=== PATIENT | female | born 1960 | race Caucasian/White ===

== ENCOUNTER 2016-11-01 14:19 | Emergency (ER) | payer BC ==
[2016-11-01] MEDS ORDERED: ZOFRAN INJ 4 MG VIAL ONE (14:32)
[2016-11-01 14:37] VITALS: BP 141/100; BMI 33.3
[2016-11-01] MEDS ORDERED: HYDROGEN PEROXIDE 3% ONE (14:37)
[2016-11-01] MEDS ORDERED: MORPHINE SULFATE INJ 4 MG IVP ONE (14:48)
[2016-11-01] MEDS ORDERED: ZOFRAN INJ 4 MG VIAL IVP ONE (14:48)
[2016-11-01] MEDS ORDERED: XYLOCAINE 1% and EPINEPHRINE 1:100,000 ONE (14:51)
[2016-11-01] MEDS ORDERED: MORPHINE SULFATE INJ 4 MG ONE (14:51)
--- NOTE | 2016-11-01 14:55 | CT ---
HISTORY: Fell and hit head. Study: CT brain without contrast. Dose reduction techniques including Automated Exposure Control (A EC) and adjustment of mA and kV were utilized. Comparison: None. Technique: Multiple axial images of the brain were obtained from the skull base to the vertex without administr ation of IV contrast. Findings: No acute intraparenchymal hemorrhage or mass can be identified. No extra-axial fluid collections ar e seen. No alteration in the attenuation of the brain parenchyma can be identified to suggest acute or subacute ischemic change. The ventricular system is symmetric and nondilated. There is an extr acranial soft tissue laceration along the lateral aspect of the supraorbital region on the left with out underlying bony fracture. IMPRESSION: No acute intracranial process can be identified. Reported By:
[2016-11-01] MEDS ORDERED: NEOSPORIN OINT ONE (15:25)
--- NOTE | 2016-11-01 15:25 | DR.GENAD ---
HPI - PCP Primary Care Physician: radha - Complaint/Symptoms Chief Complaint Doctors Comments: Admits to a headache for 3 days duration. Pain 8/10. sharp, duration 1 hour, timing just prior to being seen. Laceration of left eye brow. Chief Complaint:: patient stated she fel and hit her head on her head board causeing a 2 cm laceration to her left eye rony - Source History Provided: Patient - Mode of Arrival Mode of Arrival: Ambulatory - Timing Onset of Chief Complaint: 11/01/16 PMH - PMH Past Medical History: No Past Surgical History: Yes Surgical History: Cholecystectomy, Hysterectomy - Family History History of Family Medical Conditions: No - Social History Does patient currently use any type of tobacco product: No Have you used tobacco products in the last 12 months: No Type of Tobacco Use: None Does any household member use tobacco: No Alcohol Use: None Do you use any recreational Drugs:: No Lives With: Family Lives Where: Home - infectious screening In the last 2 months have you had wt loss of >10#?: NO Have you had fever, night sweats or hemotysis?: No Have you traveled outside the country in the last 6 months?: No Isolation: Standard ROS - Review of Systems Constitutional: Diaphoresis Eyes: No Symptoms Reported ENTM: No Symptoms Reported Respiratoy: No Symptoms Reported Cardiovascular: No Symptoms Reported Gastrointestinal/Abdominal: No Symptoms Reported Genitourinary: No Symptoms Reported Neurological: No Symptoms Reported Musculoskeletal: No Symptoms Reported Integumentary: Wound (a 2 cm superfical of left eye brow) Hematologic/Lymphatic: No Symptoms Reported Endocrine: No Symptoms Reported Psychiatric: No Symptoms Reported All Other Systems: Reviewed and Negative PE - Vital Signs Vitals: Temperature 98.5 F Pulse Rate 122 Respiratory Rate 18 Blood Pressure 141/100 O2 Sat by Pulse Oximetry 99 - General Limitations: No Limitations General Appearance: Alert, In No Apparent Distress - Head Head Exam: Normal Inspection, Atraumatic - Eyes Eye exam: Normal Appearance, PERRL, EOMI - ENT ENT Exam: Normal Exam External Ear Exam: Normal External Inspection TM/Canal Exam: Bilateral Normal Nose Exam: Normal Nose Exam Mouth Exam: Normal Inspection Throat Exam: Normal Inspection - Neck Neck Exam: Normal Inspection - Chest Chest Inspection: Normal Inspection - Respiratory Respiratory Exam: Normal Lung Sounds Bilat Respiratory Exam: Bilateral Clear to Auscultation - Cardiovascular Cardiovascular Exam: Regular Rate, Normal Rhythm - Abdominal Exam Abdominal Exam: Normal Inspection Abdominal Tenderness: negative: RUQ, RLQ, LUQ, LLQ, Epigastrium, Suprapubic, Diffuse, Mild, Moderate, Severe, Other - Extremities Extremities Exam: Normal Inspection - Back Back Exam: Normal Inspection - Neurologic Neurological Exam: Alert, Oriented X3, CN II-XII Intact - Psychiatric Psychiatric Exam: Normal Affect - Skin Skin Exam: Warm, Dry Course - Reevaluation 1st: Improved ROR - XRAY XRAY Interpreted by: Radiologist (ct Brain:No acute intraparenchymal hemorrhage or mass can be identified. No extra-axial fluid collections are seen. No alteration in the attenuation of the brain parenchyma can be identified to suggest acute or subactue ischemic change. The ventricular system is symmetric and nondilated. There is an extracranial soft tissue laceration along the lateral aspect of the supruorbital region on the left without underlying boyn fracture. IMpression: No acute intracranial [id number] can be identified.) Procedures - Procedure Comments Procedures: Laceration reparation of left eyebrow with 3 #4 interrupted ethilon sutures. - Diagnosis Discharge Problem: Laceration of forehead Qualifiers: Encounter type: initial encounter Qualified Code(s): S01.81XA - Laceration without foreign body of other part of head, initial encounter Headache Qualifiers: Headache type: unspecified Headache chronicity pattern: acute headache Intractability: not intractable Qualified Code(s): R51 - Headache - Discharge Plan Condition: Stable - Follow ups/Referrals Follow ups/Referrals: Ivan Wayne [Primary Care Provider] - 3 days - Instructions
[2016-11-01] MEDS ORDERED: ANTIVERT TAB 25 MG PO ONE ×2 (15:39→16:26)
[2016-11-01] MEDS ORDERED: ANTIVERT TAB 25 MG ONE ×2 (15:46→16:26)
[2016-11-01 15:51] LABS: BASOPHILS % (AUTO) 0.4 % (0.2-1.0); HEMATOCRIT 42.5 % (36.0-47.0); HEMOGLOBIN 14.6 g/dL (12.0-16.0); MEAN CORPUSCULAR HEMOGLOBIN 30.5 pg (27.0-34.0); MEAN CORPUSCULAR HGB CONC 34.3 g/dL (33.0-35.0); MEAN CORPUSCULAR VOLUME 88.8 fL (80.0-100.0); MEAN PLATELET VOLUME 7.6 fL (7.4-11.0); MONOCYTES # (AUTO) 0.6 x10^3/uL (0.3-0.8); MONOCYTES % (AUTO) 5.1 % (0.0-13.0); NEUTROPHILS # (AUTO) 9.2 x10^3/uL (2.2-4.8); NEUTROPHILS % (AUTO) 85.5 % (42.0-75.0); PLATELET COUNT 286 X10^3/uL (150.0-450.0); RED BLOOD COUNT 4.78 X10^6/uL (3.5-5.4); RED CELL DISTRIBUTION WIDTH 13.5 % (11.6-16.5); WHITE BLOOD COUNT 10.7 X10^3/uL (3.6-10.0)
[2016-11-01 15:55] LABS: BLOOD UREA NITROGEN 15 mg/dL (7-18); CALCIUM 8.2 mg/dL (8.5-10.1); CARBON DIOXIDE 30.4 mmol/L (21-32); CHLORIDE 105 mmol/L (98-107); COR NA(FOR HYPERGLY) 142 mmol/L (136-145); CREATININE 0.66 mg/dL (0.55-1.02); GLUCOSE 120 mg/dL (65-99); SODIUM 142 mmol/L (136-145); eGFR BLACK RACES > 60 (>60); eGFR NON BLACK RACES > 60 (>60)
[2016-11-01 16:00] LABS: ALANINE AMINOTRANSFERASE 22 Units/L (12-78); ALBUMIN 3.8 g/dL (3.4-5.0); ALKALINE PHOSPHATASE 59 Units/L (46-116); ASPARTATE AMINO TRANSFERASE 17 Units/L (15-37); TOTAL PROTEIN 7.2 g/dL (6.4-8.2)
[2016-11-01] MEDS ORDERED: POTASSIUM CHLORIDE LIQ 20 MEQ UDC PO ONE (16:23)
[2016-11-01] MEDS ORDERED: POTASSIUM CHLORIDE LIQ 20 MEQ UDC ONE (16:25)
== END 2016-11-01 16:38 | disposition home or self-care (01) ==
LOC: ER 14:21
PROC: 08QP0ZZ Repair Left Upper Eyelid, Open Approach (ICD-10-PCS; principal; 2016-11-01)
DX: S01.81XA Laceration without foreign body of other part of head, initial encounter (principal); R51 Headache; W01.198A Fall on same level from slipping, tripping and stumbling with subsequent striking against other object, initial encounter; Y92.9 Unspecified place or not applicable
CPT/HCPCS: 12011; 36415; 70450; 80053; 85025; 93005; 93010; 96372; 99283; J2001; J2270; J2405

== ENCOUNTER 2016-11-03 11:00 | Inpatient (IN) | payer BC ==
[2016-11-03] MEDS ORDERED: ZOFRAN INJ 4 MG VIAL IVP PRN (12:03)
[2016-11-03 13:05] LABS: BASOPHILS % (AUTO) 0.4 % (0.2-1.0); EOSINOPHILS % (AUTO) 0.4 % (0.9-2.9); HEMATOCRIT 41.8 % (36.0-47.0); HEMOGLOBIN 14.6 g/dL (12.0-16.0); LYMPHOCYTES # (AUTO) 1.4 X10^3/uL (1.3-2.9); LYMPHOCYTES % (AUTO) 15.1 % (21.0-51.0); MEAN CORPUSCULAR HEMOGLOBIN 30.8 pg (27.0-34.0); MEAN CORPUSCULAR VOLUME 87.9 fL (80.0-100.0); MEAN PLATELET VOLUME 7.7 fL (7.4-11.0); MONOCYTES # (AUTO) 0.7 x10^3/uL (0.3-0.8); MONOCYTES % (AUTO) 7.2 % (0.0-13.0); NEUTROPHILS # (AUTO) 7.3 x10^3/uL (2.2-4.8); NEUTROPHILS % (AUTO) 76.9 % (42.0-75.0); PLATELET COUNT 283 X10^3/uL (150.0-450.0); RED BLOOD COUNT 4.76 X10^6/uL (3.5-5.4); RED CELL DISTRIBUTION WIDTH 13.4 % (11.6-16.5); WHITE BLOOD COUNT 9.5 X10^3/uL (3.6-10.0)
[2016-11-03 13:27] LABS: ALANINE AMINOTRANSFERASE 24 Units/L (12-78); ALBUMIN 3.7 g/dL (3.4-5.0); ALKALINE PHOSPHATASE 52 Units/L (46-116); ASPARTATE AMINO TRANSFERASE 21 Units/L (15-37); BLOOD UREA NITROGEN 25 mg/dL (7-18); CALCIUM 8.9 mg/dL (8.5-10.1); CARBON DIOXIDE 36.7 mmol/L (21-32); CHLORIDE 103 mmol/L (98-107); CKMB % 2.2 % (<4); CREATINE KINASE 46 Units/L (26-192); CREATINE KINASE MB < 1.0 ng/mL (0-4.0); CREATININE 0.91 mg/dL (0.55-1.02); GLUCOSE 95 mg/dL (65-99); SODIUM 143 mmol/L (136-145); TOTAL PROTEIN 7.3 g/dL (6.4-8.2); TROPONIN I < 0.02 ng/mL (0-1.5); eGFR BLACK RACES > 60 (>60); eGFR NON BLACK RACES > 60 (>60)
[2016-11-03] MEDS ORDERED: ZOFRAN INJ 4 MG VIAL 16 MG, ATIVAN INJ 2 MG VIAL 1 MG, DECADRON INJ 10 MG in NS 50 ML I... IV PRN (13:42)
[2016-11-03 13:44] LABS: ERYTHROCYTE SEDIMENTATION RATE 9 MM/HOUR (0-20)
--- NOTE | 2016-11-03 13:49 | DR.H&P ---
H&P - History & Physical for Day of: H&P Date: 11/03/16 - Chief Complaint Chief Complaint: INTRACTABLE RAMIREZ, DIZZINESS, SYNCOPE - Allergies Allergies/Adverse Reactions: Allergies Allergy/AdvReac Type Severity Reaction Status Date / Time No Known Drug Allergies Allergy Verified 11/03/16 11:59 - History of Present Illness History of Present Illness: 56 WF DIRECT ADMIT FOR INTRACTABLE RAMIREZ, DIZZINESS AND SYNCOPAL EPISODE, PT HAS BEEN UNDER THE CARE OF STEVE RICHARDSON WITH COUNT INCLUDES THE [facility] WITH RAMIREZ AND DIZZINESS. PT HAS EXPERIENCED AND SYNCOPAL EPISODE WITH HEAD INJURY DURING THIS TIME. PT HAS CT HEAD PRIOR TO ADMISSION STABLE FOR ACUTE FINDINGS. THIS AM PT HAS N/V AND CONTINUED RAMIREZ. PLAN TO ADMIT FOR STAT MRI , CAROTID, EKG CARDIAC ENZYMES, WITH TREAT N/V SYMPTOMS. CRP, AND SED RATE, START IV SOLU MEDROL 40, ZOFRAN COCKTAIL, SUPPLEMENTAL O2, BP AND CARDIAC MONITORING - Past Medical History Past Medical History: Arthritis, GERD - Past Surgical History Surgical History: Cholecystectomy, Hysterectomy - Social History Does patient currently use any type of tobacco product: No Have you used tobacco products in the last 12 months: No Type of Tobacco Use: None Does any household member use tobacco: No Alcohol Use: None Drug Use: None - Review of Systems Constitutional: Weakness Eyes: Vision Change (ON WEDNESDAY 11/01, NONE TODAY) ENT: No Symptoms Reported Respiratory: No Symptoms Reported Cardiovascular: Light Headedness Gastrointestinal: Nausea, Vomiting Genitourinary: No Symptoms Reported Musculoskeletal: No Symptoms Reported Skin: No Symptoms Reported Neurological: Weakness, Other (HEADACHE) - Physical Exam Vital Signs: Temperature 98.9 F Pulse Rate [Left Brachial] 66 Respiratory Rate 20 Blood Pressure [Left Arm] 135/61 Blood Pressure 141/100 O2 Sat by Pulse Oximetry 94 Oriented: Normal Eyes: Normal Ear: Normal Nose: Normal Throat: Normal Respiratory: Clear Throughout Cardiovascular: Normal : Normal Auscultation: Bowel Sounds: Bruit Palpation: Normal Tenderness: Normal Skin: Normal Musculoskeletal: Normal Psychiatric: Anxiety - Assessment/Plan (1) Intractable headache Qualifiers: Headache type: H Headache chronicity pattern: H Status: Acute Plan: ADMIT, MRI STAT, PREVIOUSLY HAD CT HEAD SALES REPRESENTATIVE UNIFORMS. SERIAL CE'S AND EKG'S. PAIN AND NAUSEA CONTORL, CAROTIDS, BP AND CARDIAC MONITORNIG. CRP, SED RATE, WILL GIVE LOW DOSE SOLU MEDROL (2) Dizziness Status: Acute (3) Syncope Qualifiers: Syncope type: S Encounter type: E Status: Acute (4) Headache Qualifiers: Headache type: unspecified Headache chronicity pattern: acute headache Intractability: not intractable Qualified Code(s): R51 - Headache Status: Acute
--- NOTE | 2016-11-03 13:53 | MRI ---
HISTORY: Severe headache Study: MRI brain with and without contrast Comparison:none available Technique: Multiplanar multi-sequence MRI of the brain was obtained. Sagittal T1, axial T1, axial T 2, axial flair images, coronal T1, sagittal T1 post contrast, coronal T1 postcontrast, axial T1 post contrast images were obtained. Findings: There is increased the tibial by and ADC map signal within the medial inferior left cerebellar hemis phere with corresponding increased FLAIR and T2 signal abnormality. The no abnormal post-contrast en hancement within the left cerebellar hemisphere. The midline structures appear intact. The posterior fossa is unremarkable. The sulcal markings of the brain are normal in their appearance. Normal booth-white differentiation is maintained. No evid ence for intraparenchymal hemorrhage or mass can be identified. No extra-axial fluid collections or subarachnoid hematoma can be seen. Evaluation of the diffusion weighted images demonstrates no neena dence for acute ischemic change. The cerebral pontine angle is normal in its contour without eviden ce for mass. The ventricular system appears symmetric and nondilated. Postcontrast enhancement demonstrates no evidence for an enhancing lesion such as mass or vascular m alformation. IMPRESSION: 1. 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 No acute or subacute infarct is id entified. No mass effect or acute intracranial hemorrhage. Post-contrast imaging demonstrates no abn ormal intra-axial or extra-axial enhancement. Reported By:
--- NOTE | 2016-11-03 14:31 | RAD ---
HISTORY: Headache, dizziness Study: Chest two-view Comparison: None Findings: The trachea is midline. The cardiac silhouette is upper limits normal in size. No congestive heart failure is noted.. The lungs are clear without focal infiltrate or effusion. The bony thorax is un remarkable. IMPRESSION: 1. No acute cardiopulmonary disease. Reported By:
--- NOTE | 2016-11-03 14:36 | VAS ---
HISTORY: Headache, nausea/vomiting, shortness of breath. Study: Carotid ultrasound. Comparison: CT head dated November 01, 2016. Technique: Multiple booth scale and color flow Doppler images of the right and left carotid arterial system were obtained. The vertebral arterial system was evaluated as well. Findings: Normal color flow Doppler is seen throughout the right and left carotid arterial system. No signifi cant plaque burden. No hemodynamically significant stenosis is seen based on velocity criteria. The left vertebral artery demonstrates antegrade flow. The right vertebral artery was not well seen. IMPRESSION: 1. No hemodynamically significant stenosis. 2. The right vertebral artery was not well seen. Reported By:
[2016-11-03] MEDS: NS 1000 ML 1,000 ML IV SCH (14:45)
[2016-11-03] MEDS: SOLU-Medrol 40 MG VIAL IVP SCH ×2 (14:45→22:47)
[2016-11-03 15:22] VITALS: BMI 32.1
[2016-11-03] MEDS ORDERED: ULTRAM PO PRN (16:13)
[2016-11-03] MEDS ORDERED: ULTRAM ONE (16:34)
[2016-11-03] MEDS ORDERED: MORPHINE SULFATE INJ 2 MG ONE (16:39)
[2016-11-03] MEDS ORDERED: MORPHINE SULFATE INJ 2 MG IVP PRN (16:41)
[2016-11-03] MEDS ORDERED: TORADOL 15 MG VIAL IVP PRN (17:48)
[2016-11-03] MEDS: ECOTRIN TAB 325 MG PO SCH (18:05)
[2016-11-03] MEDS ORDERED: TORADOL 30 MG VIAL ONE (18:08)
[2016-11-03] MEDS ORDERED: NS 50 ML IV + SPIKE MINIBAG* 50 ML IV ONE (19:18)
[2016-11-03] MEDS ORDERED: ROCEPHIN VIAL 1 GM ONE (19:18)
[2016-11-03] MEDS: PROTONIX INJ 40 MG VIAL IVP SCH (19:41)
[2016-11-03] MEDS: ROCEPHIN VIAL 1 GM 1 GM in NS 50 ML IV + SPIKE MINIBAG* 50 ML IV SCH (19:46)
[2016-11-03] MEDS ORDERED: K-LYTE EFFERVESCENT PO PRN (19:48)
[2016-11-03] MEDS ORDERED: POTASSIUM CHLORIDE LIQ 20 MEQ UDC PO PRN (19:48)
[2016-11-03] MEDS ORDERED: K-DUR TAB 20 MEQ PO PRN (19:48)
[2016-11-03] MEDS ORDERED: K-RIDER 10 MEQ/NS 100 ML 10 MEQ/100 ML BAG IV PRN (19:55)
[2016-11-03] MEDS ORDERED: NS 1000 ML 1,000 ML IV SCH (20:00)
[2016-11-03 20:03] LABS: CKMB % 2.1 % (<4); CREATINE KINASE 47 Units/L (26-192); CREATINE KINASE MB < 1.0 ng/mL (0-4.0); TROPONIN I < 0.02 ng/mL (0-1.5)
[2016-11-03] MEDS: CRESTOR TAB 10 MG PO SCH (21:18)
[2016-11-03] MEDS ORDERED: NS 50 ML IV 50 ML IV ONE (23:00)
[2016-11-03] MEDS ORDERED: ZOFRAN INJ 4 MG VIAL ONE (23:00)
[2016-11-03] MEDS ORDERED: DECADRON INJ PRESERVATIVE-FREE ONE (23:00)
[2016-11-03] MEDS ORDERED: ATIVAN INJ 2 MG VIAL ONE (23:01)
[2016-11-04 02:48] LABS: CREATINE KINASE 50 Units/L (26-192); CREATINE KINASE MB < 1.0 ng/mL (0-4.0); TROPONIN I < 0.02 ng/mL (0-1.5)
[2016-11-04] MEDS: SOLU-Medrol 40 MG VIAL IVP SCH ×3 (05:25→22:59)
[2016-11-04] MEDS: NS 1000 ML 1,000 ML IV SCH ×2 (05:25→20:24)
[2016-11-04 05:26] LABS: BASOPHILS % (AUTO) 0.2 % (0.2-1.0); HEMATOCRIT 42.9 % (36.0-47.0); LYMPHOCYTES % (AUTO) 10.1 % (21.0-51.0); MEAN CORPUSCULAR HEMOGLOBIN 30.9 pg (27.0-34.0); MEAN CORPUSCULAR HGB CONC 34.9 g/dL (33.0-35.0); MEAN CORPUSCULAR VOLUME 88.6 fL (80.0-100.0); MONOCYTES # (AUTO) 0.1 x10^3/uL (0.3-0.8); MONOCYTES % (AUTO) 0.9 % (0.0-13.0); NEUTROPHILS # (AUTO) 8.4 x10^3/uL (2.2-4.8); NEUTROPHILS % (AUTO) 88.8 % (42.0-75.0); PLATELET COUNT 294 X10^3/uL (150.0-450.0); RED BLOOD COUNT 4.84 X10^6/uL (3.5-5.4); RED CELL DISTRIBUTION WIDTH 13.3 % (11.6-16.5); WHITE BLOOD COUNT 9.5 X10^3/uL (3.6-10.0)
[2016-11-04 05:42] LABS: ALANINE AMINOTRANSFERASE 22 Units/L (12-78); ALBUMIN 3.6 g/dL (3.4-5.0); ALKALINE PHOSPHATASE 50 Units/L (46-116); ASPARTATE AMINO TRANSFERASE 20 Units/L (15-37); BLOOD UREA NITROGEN 24 mg/dL (7-18); CALCIUM 8.4 mg/dL (8.5-10.1); CARBON DIOXIDE 28.2 mmol/L (21-32); CHLORIDE 106 mmol/L (98-107); CHOL/HDL RATIO 3.3 (0.0-5.0); CHOLESTEROL 214 mg/dL (0-200); COR NA(FOR HYPERGLY) 144 mmol/L (136-145); CREATININE 0.65 mg/dL (0.55-1.02); GLUCOSE 119 mg/dL (65-99); HDL CHOLESTEROL 65 mg/dL (40-60); SODIUM 144 mmol/L (136-145); TOTAL PROTEIN 7.1 g/dL (6.4-8.2); TRIGLYCERIDES 64 mg/dL (0-150); eGFR BLACK RACES > 60 (>60); eGFR NON BLACK RACES > 60 (>60)
[2016-11-04] MEDS: ZOFRAN INJ 4 MG VIAL IVP PRN (06:25)
[2016-11-04] MEDS ORDERED: PHENERGAN INJ 25 MG IV ONE (09:12)
[2016-11-04] MEDS: ROCEPHIN VIAL 1 GM 1 GM in NS 50 ML IV + SPIKE MINIBAG* 50 ML IV SCH (09:13)
[2016-11-04] MEDS: PROTONIX INJ 40 MG VIAL IVP SCH (09:14)
[2016-11-04] MEDS: ECOTRIN TAB 325 MG PO SCH (09:29)
[2016-11-04] MEDS: REQUIP PO SCH ×2 (12:44→20:27)
[2016-11-04] MEDS ORDERED: NORCO 7.5/325 MG TAB PO PRN (14:37)
[2016-11-04] MEDS: CLARITIN-D 12 HOUR TAB PO SCH (15:31)
--- NOTE | 2016-11-04 17:39 | PCM.PROG ---
Progress Note - Progress Note for Day of Date: 11/04/16 - Subjective Subjective: 56 wf admitted one day ago with intractable ramirez, n/v. pt states this am, her RAMIREZ is tolerable, improved nausea. pt MRI revealed old cva, added statin and ecotrin to treatment, plan, consult neuro if available. pt states she thinks ramirez, dizziness is from sinus infection, will continue rocephin iv and ofe, prn nausea pain control. EEG ordered this am - Past Medical Family Social History Past Med/Fam/Surg Hx: No changes since H&P Allergies: Allergies No Known Drug Allergies Allergy (Verified 11/03/16 11:59) - Review of Systems ROS: No change since H&P - Vital Signs and I&O's Vital Signs: Temperature 98 F Pulse Rate [Left Brachial] 70 Respiratory Rate 20 Blood Pressure [Left Arm] 110/63 Blood Pressure 141/100 O2 Sat by Pulse Oximetry 95 Intake and Output: Intake & Output 11/02/16 11/03/16 11/04/16 11/05/16 11:59 11:59 11:59 11:59 Intake Total 1250 240 Output Total 0 4 Balance 1250 236 - Physical Exam Oriented: Normal Eyes: Normal Ear: Normal Nose: Other (frontal sinus tenderness) Throat: Exudate Respiratory: Normal Cardiovascular: Normal : Normal Auscultation: Bowel Sounds: Bruit Tenderness: Normal Skin: Normal Musculoskeletal: Normal Psychiatric: Anxiety Speech Pattern: Clear, Appropriate - Laboratory and Diagnostics Result Diagrams: 11/04/16 03:40 11/04/16 03:40 Labs: Laboratory WBC 9.5 X10^3/uL (3.6-10.0) 11/04/16 03:40 RBC 4.84 X10^6/uL (3.5-5.4) 11/04/16 03:40 Hgb 15.0 g/dL (12.0-16.0) 11/04/16 03:40 Hct 42.9 % (36.0-47.0) 11/04/16 03:40 MCV 88.6 fL (80.0-100.0) 11/04/16 03:40 MCH 30.9 pg (27.0-34.0) 11/04/16 03:40 MCHC 34.9 g/dL (33.0-35.0) 11/04/16 03:40 RDW 13.3 % (11.6-16.5) 11/04/16 03:40 Plt Count 294 X10^3/uL (150.0-450.0) 11/04/16 03:40 MPV 8.0 fL (7.4-11.0) 11/04/16 03:40 Neut % 88.8 % (42.0-75.0) H 11/04/16 03:40 Lymph % 10.1 % (21.0-51.0) L 11/04/16 03:40 [place] % 0.9 % (0.0-13.0) 11/04/16 03:40 Eos % 0.0 % (0.9-2.9) L 11/04/16 03:40 Baso % 0.2 % (0.2-1.0) 11/04/16 03:40 Neut # 8.4 x10^3/uL (2.2-4.8) H 11/04/16 03:40 Lymph # 1.0 X10^3/uL (1.3-2.9) L 11/04/16 03:40 [place] # 0.1 x10^3/uL (0.3-0.8) L 11/04/16 03:40 Eos # 0.0 x10^3/uL (0.0-0.2) 11/04/16 03:40 Baso # 0.0 X10^3/uL (0.0-0.1) 11/04/16 03:40 Absolute Nucleated RBC 0.0 /100WBC 11/04/16 03:40 ESR 9 MM/HOUR (0-20) 11/03/16 12:24 Sodium 144 mmol/L (136-145) 11/04/16 03:40 Corrected Sodium 144 mmol/L (136-145) 11/04/16 03:40 Potassium 3.5 mmol/L (3.5-5.1) 11/04/16 03:40 Chloride 106 mmol/L (98-107) 11/04/16 03:40 Carbon Dioxide 28.2 mmol/L (21-32) 11/04/16 03:40 BUN 24 mg/dL (7-18) H 11/04/16 03:40 Creatinine 0.65 mg/dL (0.55-1.02) 11/04/16 03:40 Est GFR (MDRD) Af Amer > 60 (>60) 11/04/16 03:40 Est GFR (MDRD) Non-Af > 60 (>60) 11/04/16 03:40 Glucose 119 mg/dL (65-99) H 11/04/16 03:40 Calcium 8.4 mg/dL (8.5-10.1) L 11/04/16 03:40 Corrected Calcium TNP 11/04/16 03:40 Magnesium 2.0 mg/dL (1.7-2.9) 11/04/16 03:40 Total Bilirubin 0.50 mg/dL (0.2-1.0) 11/04/16 03:40 AST 20 Units/L (15-37) 11/04/16 03:40 ALT 22 Units/L (12-78) 11/04/16 03:40 Alkaline Phosphatase 50 Units/L (46-116) 11/04/16 03:40 Creatine Kinase 50 Units/L (26-192) 11/04/16 02:06 CK-MB (CK-2) < 1.0 ng/mL (0-4.0) 11/04/16 02:06 CK/CKMB % Calc 2.0 % (<4) 11/04/16 02:06 Troponin I < 0.02 ng/mL (0-1.5) 11/04/16 02:06 C-Reactive Protein 1.80 mg/L (0-3.0) 11/03/16 12:24 Total Protein 7.1 g/dL (6.4-8.2) 11/04/16 03:40 Albumin 3.6 g/dL (3.4-5.0) 11/04/16 03:40 Globulin 3.5 g/dL (2.5-4.5) 11/04/16 03:40 Albumin/Globulin Ratio 1.0 Ratio (1.1-2.1) L 11/04/16 03:40 Triglycerides 64 mg/dL (0-150) 11/04/16 03:40 Cholesterol 214 mg/dL (0-200) H 11/04/16 03:40 LDL Cholesterol, Calc 136 mg/dL (0-100) H 11/04/16 03:40 HDL Cholesterol 65 mg/dL (40-60) H 11/04/16 03:40 Cholesterol/HDL Ratio 3.3 (0.0-5.0) 11/04/16 03:40 - Plan (1) Intractable headache Status: Acute Qualifiers: Headache type: H Headache chronicity pattern: H Plan: improving RAMIREZ, reviewed MRI with pt and family. will continue Treatment for sinusitis, sinus ramirez. blood pressure and lipid control. consult, neuro, eeg ordered this am (2) Dizziness Status: Acute (3) Syncope Status: Acute Qualifiers: Syncope type: S Encounter type: E (4) Headache Status: Acute Qualifiers: Headache type: unspecified Headache chronicity pattern: acute headache Intractability: not intractable Qualified Code(s): R51 - Headache (5) Sinusitis Status: Acute Qualifiers: Sinusitis location: S Chronicity: C Recurrence: R Plan: rocephindanaeofe, iv hydration
[2016-11-04] MEDS: CRESTOR TAB 10 MG PO SCH (20:28)
[2016-11-05] MEDS: SOLU-Medrol 40 MG VIAL IVP SCH ×2 (05:12→13:34)
[2016-11-05 06:03] LABS: ALANINE AMINOTRANSFERASE 21 Units/L (12-78); ALKALINE PHOSPHATASE 46 Units/L (46-116); ASPARTATE AMINO TRANSFERASE 17 Units/L (15-37); BLOOD UREA NITROGEN 24 mg/dL (7-18); CALCIUM 7.8 mg/dL (8.5-10.1); CARBON DIOXIDE 30.4 mmol/L (21-32); CHLORIDE 109 mmol/L (98-107); COR CA(FOR HYPOALB) 8.6 mg/dL (8.5-10.1); COR NA(FOR HYPERGLY) 146 mmol/L (136-145); CREATININE 0.72 mg/dL (0.55-1.02); GLUCOSE 131 mg/dL (65-99); SODIUM 145 mmol/L (136-145); TOTAL PROTEIN 6.1 g/dL (6.4-8.2); eGFR BLACK RACES > 60 (>60); eGFR NON BLACK RACES > 60 (>60)
[2016-11-05 06:08] LABS: BASOPHILS % (AUTO) 0.2 % (0.2-1.0); HEMATOCRIT 37.9 % (36.0-47.0); HEMOGLOBIN 12.9 g/dL (12.0-16.0); LYMPHOCYTES % (AUTO) 7.7 % (21.0-51.0); MEAN CORPUSCULAR HGB CONC 34.1 g/dL (33.0-35.0); MEAN CORPUSCULAR VOLUME 88.1 fL (80.0-100.0); MEAN PLATELET VOLUME 8.2 fL (7.4-11.0); MONOCYTES # (AUTO) 0.7 x10^3/uL (0.3-0.8); MONOCYTES % (AUTO) 5.8 % (0.0-13.0); NEUTROPHILS # (AUTO) 10.8 x10^3/uL (2.2-4.8); NEUTROPHILS % (AUTO) 86.3 % (42.0-75.0); PLATELET COUNT 282 X10^3/uL (150.0-450.0); RED CELL DISTRIBUTION WIDTH 13.8 % (11.6-16.5); WHITE BLOOD COUNT 12.5 X10^3/uL (3.6-10.0)
[2016-11-05] MEDS: ZOFRAN INJ 4 MG VIAL IVP PRN (08:05)
[2016-11-05] MEDS: ECOTRIN TAB 325 MG PO SCH (08:07)
[2016-11-05] MEDS: PROTONIX INJ 40 MG VIAL IVP SCH (08:07)
[2016-11-05] MEDS: ROCEPHIN VIAL 1 GM 1 GM in NS 50 ML IV + SPIKE MINIBAG* 50 ML IV SCH (08:08)
[2016-11-05] MEDS: REQUIP PO SCH (08:08)
[2016-11-05] MEDS: NS 1000 ML 1,000 ML IV SCH (08:14)
[2016-11-05] MEDS ORDERED: BENADRYL INJ 50 MG VIAL IVP ONE (09:09)
[2016-11-05] MEDS ORDERED: DECADRON INJ IM ONE (09:09)
[2016-11-05] MEDS ORDERED: ZITHROMAX INJ 500 MG VIAL 500 MG in NS 250 ML IV 250 ML IV SCH (09:09)
[2016-11-05] MEDS ORDERED: TORADOL 15 MG VIAL IVP ONE (09:12)
[2016-11-05] MEDS: CLARITIN-D 12 HOUR TAB PO SCH (09:58)
--- NOTE | 2016-11-05 12:42 | MRI ---
HISTORY: Neck pain with cracking and popping Study: Noncontrast MRI of the cervical spine Comparison: No priors Technique: Multiplanar multisequence MRI of the cervical spine was obtained utilizing standard depar tmental protocol. Findings: Alignment of the cervical spine is maintained. No abnormal signal characteristics of the bone marro w can be identified. No evidence for fracture or significant bone or edema can be seen. The surrou nding soft tissues are unremarkable. The central canal appears widely patent and normal signal glen acteristics of the spinal cord are noted. C2 -- C3: Unremarkable C3 -- C4: Unremarkable C4 -- C5: Unremarkable C5 -- C6: Disc space narrowing with subarticular disk osteophyte complex on the left with foraminal stenosis and exiting nerve root impingement. No central spinal stenosis is seen. A small disc protru elmira is present in the subarticular region on the right without evidence of foraminal stenosis or ne rve root impingement. C6 -- C7: Small bilateral subarticular disk osteophyte complexes with only minimal foraminal stenosi s on the right. No evidence of nerve root impingement is seen. There is no evidence of central spina l stenosis. C7 -- T1: Unremarkable IMPRESSION: Significant appearing left-sided subarticular disk osteophyte complex with foraminal stenosis and ex iting nerve root impingement. Reported By:
[2016-11-05 14:12] VITALS: BP 127/60
== END 2016-11-05 14:40 | disposition home or self-care (01) | DRG 103 ==
LOC: MED/SURG 11:00
PROVIDERS: ADMIT Internal Medicine; ATTEND Internal Medicine
DX: R51 Headache (principal); R11.2 Nausea with vomiting, unspecified; R55 Syncope and collapse; R42 Dizziness and giddiness; Z91.81 History of falling; M13.89 Other specified arthritis, multiple sites; K21.9 Gastro-esophageal reflux disease without esophagitis; J01.80 Other acute sinusitis; M50.30 Other cervical disc degeneration, unspecified cervical region; Z86.73 Personal history of transient ischemic attack (TIA), and cerebral infarction without residual deficits
CPT/HCPCS: 36415; 70553; 71020; 72141; 80053; 80061; 82550; 82553; 83735; 84132; 84484; 85025; 85652; 86140; 93005; 93010; 93880; 95819; A4222; C9113; J0456; J0696; J1100; J1200; J1885; J2060; J2270; J2405; J2550; J2920; J3480

== ENCOUNTER → 2016-11-24 | Outpatient (CLI) | payer BC ==
[2016-11-05 14:12] VITALS: BP 127/60
--- NOTE | 2016-11-24 13:49 | MRI ---
MRA HEAD WITHOUT CONTRAST CLINICAL HISTORY: 56-year-old female with persistent headaches. COMPARISONS: MRI brain November 03, 2016. CT head November 01, 2016. TECHNIQUE: 3-D time of flight magnetic resonance angiographic images of the [place] were obt ained and presented as maximum intensity projection images in rotating format. FINDINGS: Left dominant vertebral artery. Bilateral PICA are present. The basilar artery is normal in appearanc e and gives off normal bilateral AICA superior cerebellar and posterior cerebral arteries. The wildlife biology internship al carotid arteries are normal from the distal cervical segments to the carotid terminus. There are m oderate caliber posterior communicating arteries bilaterally. The middle and anterior cerebral arteri es are normal in course and caliber with a right dominant A1 segment and small caliber of left A1 seg ment. There is a moderate caliber anterior communicating artery. IMPRESSION: No aneurysm, high-grade stenosis, complete occlusion, dissection or vascular malformation. Reported By:
== END ==
LOC: RAD 11:50
PROVIDERS: ATTEND Nurse Practitioner Family
DX: R90.89 Other abnormal findings on diagnostic imaging of central nervous system (principal)
CPT/HCPCS: 70544